=== PATIENT | female | born 1980 | race Caucasian/White ===

== ENCOUNTER 2023-09-14 20:53 | Emergency (ER) | payer BC ==
[~2023-09-14] VITALS: Ht 154.9 cm; Wt 61.7 kg
[2023-09-14] MEDS ORDERED: BUTA1CAP43 PO (21:44)
[2023-09-14] MEDS: KETOROLAC TROMETHAMINE 30 MG VIAL IM ONE (21:52)
[2023-09-14] MEDS: ONDANSETRON 4 MG ODT TAB PO ONE (21:52)
[2023-09-14 21:57] VITALS: BP_SYST 140; PULSE 88; RESP 18; TEMP 98.8; O2SAT 99
[2023-09-15] VITALS: BP_SYST 140; PULSE 88; RESP 18; TEMP 98.8; O2SAT 99
== END 2023-09-15 | disposition home or self-care (01) ==
LOC: SED 20:53
DX: G43.909 Migraine, unspecified, not intractable, without status migrainosus (principal); Z79.899 Other long term (current) drug therapy
CPT/HCPCS: 99285; 70450; 81025; 96372; Q0162; J1885